=== PATIENT | female | born 1970 | race African-American/Black ===

== ENCOUNTER 2021-10-27 14:38 | Emergency (ER) | payer MEDICAID, OTHER ==
[~2021-10-27] VITALS: Ht 170.2 cm; Wt 75.0 kg
[2021-10-27 14:58] VITALS: BP 110/74
[2021-10-27] MEDS ORDERED: LORAZEPAM 1MG TABLET PO ONE (15:30)
[2021-10-27] MEDS ORDERED: ACETAMINOPHEN 325MG TABLET PO ONE (16:00)
== END 2021-10-27 17:19 | disposition home or self-care (01) ==
LOC: ER 14:38
DX: F41.0 Panic disorder [episodic paroxysmal anxiety] (principal); F43.0 Acute stress reaction; Z56.6 Other physical and mental strain related to work
CPT/HCPCS: 93005; 99283